=== PATIENT | male | born 1965 | race Caucasian/White ===

== ENCOUNTER 2020-12-07 15:22 | Emergency (ER) | payer MEDICAID ==
[~2020-12-07] VITALS: Ht 154.9 cm; Wt 68.0 kg
[2020-12-07 15:23] VITALS: Ht 154.9 cm; Wt 68.0 kg
[2020-12-07 18:59] VITALS: BP 139/74
== END 2020-12-07 18:59 | disposition home or self-care (01) ==
LOC: ED 15:22
DX: U07.1 COVID-19 (principal); E11.9 Type 2 diabetes mellitus without complications
CPT/HCPCS: 82962; U0003